=== PATIENT | female | born 1960 ===

== ENCOUNTER → 2016-06-10 | Outpatient (CLI) | payer BC ==
--- NOTE | 2016-06-10 13:21 | KCIC ---
Examination: Two views of the chest. HISTORY History wheezing, productive cough for 1 month. COMPARISON None available. Findings. The cardiomediastinal silhouette grossly appears unremarkable. There is no acute infiltrate or visualized pneumothorax identified. A faint 6 millimeter opacity identified in the left lingula of the lung could be a granuloma or pulmonary nodule. IMPRESSION 6 millimeter opacity identified in the left upper lobe lingula of the lung could be a granuloma or a pulmonary nodule.Followup CT chest is recommended. Electronically signed by: Erasmo Guerrero (Jun 10, 2016 13:21:07)
== END | disposition home or self-care (01) ==
LOC: KCIC 12:42
PROVIDERS: ATTEND Nurse Practitioner Family
DX: R06.2 Wheezing (principal); R05 Cough; Z87.891 Personal history of nicotine dependence
CPT/HCPCS: 71020

== ENCOUNTER → 2016-06-27 | Outpatient (CLI) | payer BC ==
--- NOTE | 2016-06-27 13:21 | KCIC ---
PROCEDURE CT of the chest without contrast HISTORY Abnormal chest x-ray. Lung nodule. Thirty-five years smoking history. TECHNIQUE Standard noncontrast images are obtained. Exposure: One or more of the following individualized dose reduction techniques were utilized for this exam: 1. Automated exposure control. 2. Adjustment of the mA and/or kV according to patient size. 3. Use of iterative reconstruction technique. COMPARISON Chest x-ray June 10, 2016. FINDINGS There is a densely calcified pulmonary nodule in the anterior left upper lobe, likely represents the nodule seen on the chest radiograph, compatible with a granuloma. Just posterior to this is a 2nd nodule with a central calcification also compatible with a granuloma. Several additional tiny nodules measuring 1-2 mm without obvious calcification. There are several foci mild ground-glass opacity in the right upper lobe anteriorly. Trachea and central airways are patent. No pneumothorax. Limited vascular examination without intravenous contrast. The ascending aorta measures 3.8 cm which is upper limits normal. The transverse and descending aortic are not aneurysmal. Moderate enlargement of the left axillary lymph nodes. Largest lymph node measures 3.9 cm long axis. There are some small mediastinal lymph nodes but no evidence of pathologic enlargement. Bilateral breast implants are noted. No pericardial effusion. No significant pleural effusion. There is lower cervical and thoracic spondylosis. The partially visualized lower cervical spine demonstrates spinal and neural foraminal stenosis. Limited scans through the upper abdomen are limited without intravenous or oral contrast but demonstrate no acute findings. IMPRESSION 1. The small nodule identified on chest x-ray appears to correlate with a small calcified granuloma in the left upper lobe. 2. Moderate enlargement of left axillary lymph nodes. Malignant or metastatic etiology should be considered and worked up. 3. Several additional tiny pulmonary nodules, measuring about 1 or 2 millimeters each. These may just represent some additional noncalcified granulomas. However, in the context of a smoking history and left axillary lymph node enlargement, at least short-term CT chest follow-up in 6 months could be of benefit. 4. The ascending aorta is upper limits normal in transverse diameter, 4 cm. 5. Small areas of ground-glass opacity in the right upper lobe anteriorly. Considerations include small airway disease or pneumonitis. Electronically signed by: Yusef Fonseca MD (Jun 27, 2016 13:20:12)
== END | disposition home or self-care (01) ==
LOC: KCIC CT 10:43
PROVIDERS: ATTEND Nurse Practitioner Family
DX: R91.1 Solitary pulmonary nodule (principal); M47.894 Other spondylosis, thoracic region; M47.892 Other spondylosis, cervical region; R59.0 Localized enlarged lymph nodes
CPT/HCPCS: 71250

== ENCOUNTER → 2016-07-10 | Outpatient (CLI) | payer BC ==
--- NOTE | 2016-07-11 10:15 | KCIC ---
DATE: 07/10/2016 EXAM: DIGITAL DIAGNOSTIC BILATERAL, BREAST LEFT HISTORY: Enlarged lymph nodes left axilla COMPARISON: 04/04/2014 FINDINGS: The breast parenchyma demonstrates heterogeneously dense breast tissue, category C. There is a small well-circumscribed nodule identified in the left upper breast. Spot compression view of the left breast demonstrates persistence of this nodule. Ultrasound of the left breast demonstrates a 5.5 mm hypoechogenicity at 11:30 position 6 cm from the nipple with some minimal irregular margins identified. Ultrasound the left axilla demonstrates large abnormal appearing lymph nodes measuring 3.7 cm, 3.6 cm and 1.5 cm. Bilateral breast implants appear intact. IMPRESSION: 1. Abnormal appearing lymph nodes identified in the left axilla differential includes infectious lymphadenopathy reactive lymphadenopathy or metastasis or lymphoma.. Recommend ultrasound-guided biopsy. 2.Ultrasound of the left breast demonstrates a 5.5 mm hypoechogenicity at 11:30 position 6 cm from the nipple with some minimal irregular margins identified. This may be a complicated cyst or a small hypodense mass. Recommend ultrasound- guided biopsy. However this lesion appears to be close to the breast implant particularly on the ultrasound. Consider MRI of the bilateral breasts before biopsy. BI-RADS CATEGORY: 4. Suspicious finding. Please note that an MRI of the breasts may be useful prior to ultrasound-guided biopsy. RECOMMENDED FOLLOW-UP: BIO BIOPSY RECOMMENDED Yi [facility] [employer] was informed at time of dictation. PQRS compliance statement: Patient information was entered into a reminder system with a target due date immediate recall for the next mammogram. Mammography is a sensitive method for finding small breast cancers, but it does not detect them all and is not a substitute for careful clinical examination. A negative mammogram does not negate a clinically suspicious finding and should not result in delay in biopsying a clinically suspicious abnormality. "Our facility is accredited by the [employer] Mammography [employer]." MTDD
== END | disposition home or self-care (01) ==
LOC: KCIC MAMMO 08:59
PROVIDERS: ATTEND Nurse Practitioner Family
DX: R92.8 Other abnormal and inconclusive findings on diagnostic imaging of breast (principal); N63 Unspecified lump in breast; R59.1 Generalized enlarged lymph nodes
CPT/HCPCS: 76641; G0204; 77066